=== PATIENT | male | born 2000 | race Caucasian/White ===

== ENCOUNTER 2025-09-10 23:34 | Emergency (ER) | payer SELFPAY ==
[~2025-09-10] VITALS: Ht 177.8 cm; Wt 68.0 kg
[2025-09-11 00:11] VITALS: O2SAT 98
[2025-09-11 00:15] LABS: BASOPHILS % 0.4 % (0.0-2.0); EOSINOPHILS % 0.2 % (0.0-5.0); HEMATOCRIT. 44.3 % (42.0-52.0); HEMOGLOBIN. 14.9 g/dL (14.0-18.0); LYMPHOCYTES % 7.5 % (20.0-50.0); MEAN PLATELET VOLUME 9.5 fl (7.4-10.4); MONOCYTES % 3.5 % (2.0-8.0); NEUTROPHILS % 88.4 % (40.0-76.0); PLATELET 215 x1000/uL (130-400); RED BLOOD CELL COUNT 5.28 mill/uL (4.7-6.1); RED CELL DISTRIBUTION WIDTH 13.1 % (11.6-14.6)
[2025-09-11 00:29] LABS: CREATININE 0.9 mg/dL (0.6-1.3); PROTEIN TOTAL 7.7 g/dL (6.0-8.3); UREA NITROGEN BLOOD 8 mg/dL (9-23)
[2025-09-11 00:31] LABS: ASPARTATE AMINOTRANSFERASE 30 IU/L (<34); BILIRUBIN DIRECT 0.6 mg/dL (<=3.0); BILIRUBIN TOTAL 1.5 mg/dL (0.1-1.0)
[2025-09-11] MEDS: PANTOPRAZOLE SODIUM 40 MG/VIAL IV ONE (00:48)
[2025-09-11] MEDS: KETOROLAC 15MG/ML VIAL IV ONE (00:49)
[2025-09-11] MEDS: ONDANSETRON HCL 4MG/2ML INJ IV ONE (00:49)
[2025-09-11] MEDS: SODIUM CHLORIDE 0.9% 1,000 ML IV ONE (00:50)
[2025-09-11 01:50] LABS: CLARITY URINE CLEAR (CLEAR); COLOR URINE YELLOW (YELLOW); GLUCOSE URINE NEGATIVE (NEGATIVE); KETONES URINE 1+ (NEGATIVE); LEUKOCYTE ESTERASE URINE TRACE (NEGATIVE); NITRITE URINE NEGATIVE (NEGATIVE); OCCULT BLOOD URINE NEGATIVE (NEGATIVE); PH URINE >=9.0 (4.5-8.0); PROTEIN URINE 1+ (NEGATIVE); SPECIFIC GRAVITY URINE 1.029 (1.005-1.030); UROBILINOGEN URINE 1.0 E.U./dL (0.2-1.0)
[2025-09-11 02:15] LABS: RBC URINE 0-2 /hpf (0-2); SQUAMOUS EPITHELIAL CELL URINE FEW /lpf (RARE/1+); WBC URINE 0-2 /hpf (0-2)
[2025-09-11 02:18] LABS: BACTERIA URINE TRACE
[2025-09-11] MEDS ORDERED: ONDA4TAB50 MT (02:41)
[2025-09-11 02:45] VITALS: BP 114/54; PULSE 90; RESP 16; TEMP 36.7; O2SAT 98
== END 2025-09-11 02:48 | disposition home or self-care (01) ==
LOC: ER 23:34
DX: R11.15 Cyclical vomiting syndrome unrelated to migraine (principal); R11.2 Nausea with vomiting, unspecified; F12.90 Cannabis use, unspecified, uncomplicated; Z88.2 Allergy status to sulfonamides
CPT/HCPCS: 80076; 80048; 83690; 85025; 36415; 99285; 81003; 96361; 96374; 96375; J1885; J2405; J2470; J7030; Z7610 ×2